=== PATIENT | female | born 1985 ===

== ENCOUNTER 2017-07-12 20:05 | Emergency (ER) | payer MEDICAID ==
[~2017-07-12] VITALS: Ht 175.3 cm; Wt 86.2 kg
[2017-07-12] MEDS ORDERED: MUPIROCIN 2% OINT 22 GM TUBE TP ONE (21:15)
[2017-07-12] MEDS ORDERED: MUPIROCIN 2% OINT 22 GM TUBE ONE (21:17)
--- NOTE | 2017-07-12 21:21 | NUR ---
Patient discharged to home in stable conditon. Written and verbal after care instructions given. Patient verbalizes understanding of instructions. Patient ambulated out of ER in steady gait. All belongings with pt. VSS. No acute distress notd.
[2017-07-12 21:23] VITALS: BP 141/72
== END 2017-07-12 21:24 | disposition home or self-care (01) ==
LOC: ER 20:11
DX: N64.52 Nipple discharge (principal)
CPT/HCPCS: 99283; A4663